=== PATIENT | female | born 1960 | race Asian ===

== ENCOUNTER 2019-03-01 06:53 | Day surgery (SDC) | payer OTHER ==
[~2019-03-01] VITALS: Ht 154.9 cm; Wt 55.7 kg
[2019-03-01 07:27] VITALS: Ht 154.9 cm; Wt 55.7 kg
[2019-03-01] MEDS ORDERED: CALCIUM (07:33)
[2019-03-01] MEDS ORDERED: VITAMINS (07:33)
[2019-03-01] MEDS ORDERED: ATORVASTATIN (07:33)
[2019-03-01] MEDS ORDERED: AMLODIPINE (07:33)
[2019-03-01 07:46] VITALS: BP 132/72; PULSE 64; RESP 12
[2019-03-01] MEDS ORDERED: MIDAZOLAM 1 MG/ML 2 ML INJ ONE ×2 (08:36)
[2019-03-01] MEDS ORDERED: FENTAnyl 50 MCG/ML VIAL ONE (08:36)
== END 2019-03-01 13:33 | disposition home or self-care (01) ==
LOC: GIL 06:53
PROVIDERS: ATTEND Internal Medicine Gastroenterology
DX: Z12.11 Encounter for screening for malignant neoplasm of colon (principal); K64.8 Other hemorrhoids; I10 Essential (primary) hypertension
CPT/HCPCS: 45380; 88305; J2250; J3010; Z7610